=== PATIENT | male | born 1940 | race Caucasian/White ===

== ENCOUNTER 2017-11-20 10:58 | Emergency (ER) | payer MEDICARE ==
[~2017-11-20] VITALS: Ht 170.2 cm; Wt 87.3 kg
[~2017-11-20 10:58] MED LIST: DIOV80TA2 PO; GLUCTAB PO; LORA10TA7 PO; NORV2.5T11; STOO100C PO
[2017-11-20 11:12] VITALS: BP 124/71; PULSE 81; RESP 16; TEMP 97.8; O2SAT 95
[2017-11-20] MEDS ORDERED: METF500T PO (11:38)
[2017-11-20] MEDS ORDERED: AMLO10TA2 PO (11:38)
[2017-11-20] MEDS ORDERED: LISI-515 PO (11:38)
[2017-11-20] MEDS ORDERED: FINA5TAB2 PO (11:38)
[2017-11-20] MEDS ORDERED: LORA-650 PO (11:38)
[2017-11-20] MEDS ORDERED: LEVO25TA4 PO (11:38)
[2017-11-20] MEDS ORDERED: SIMV40TA PO (11:38)
[2017-11-20] MEDS ORDERED: RANI150T PO (11:38)
[2017-11-20] MEDS ORDERED: LISI30TA4 PO (11:38)
[2017-11-20] MEDS ORDERED: AZIT250T3 PO (11:57)
[2017-11-20] MEDS ORDERED: BENZ100 PO (11:58)
--- NOTE | 2017-11-20 11:58 | PD ---
HPI Chief Complaint: Cold / Flu Symptoms Time Seen by Provider: 11:50 Travel History International Travel<30 days: No Contact w/Intl Traveler<30days: No Traveled to known affect area: No History of Present Illness HPI This is a 77-year-old male here for evaluation of productive cough and nasal congestion 5 days. He is reporting cough with yellow phlegm. Severity is moderate. No aggravating or alleviating factors. Denies fever or chills or body aches. Multiple members in the home with similar symptoms. PFSH Past Medical History Hx Anticoagulant Therapy: Yes (asa 81mg) Cardiac Catheterization: Yes Cardiovascular Problems: Yes (htn on meds, stent x 1) High Cholesterol: Yes Diabetes: Yes (type 2) Patient Takes Glucophage: Yes (TODAY) Hypertension: Yes Thyroid Disease: Yes Tetanus Vaccination: < 5 Years Influenza Vaccination: No Past Surgical History Coronary Stent: Yes Thoracic Surgery: Yes (RIGHT LOWER LOBECTOMY) Social History Alcohol Use: Yes (OCCASIONAL) Tobacco Use: Yes (CIGARS 2-3 PER WEEK) Substance Use: No Allergies-Medications (Allergen,Severity, Reaction): Coded Allergies: penicillin G (Unverified Allergy, Severe, HIVES, 11/20/17) Reported Meds & Prescriptions Reported Meds & Active Scripts Active Reported Simvastatin 40 Mg Tab 40 Mg PO HS Amlodipine (Amlodipine Besylate) 10 Mg Tab 10 Mg PO DAILY Finasteride 5 Mg Tab 5 Mg PO DAILY Do not crush. Lisinopril 20 Mg Tab 20 Mg PO DAILY Ranitidine (Ranitidine HCl) 150 Mg Tab 150 Mg PO DAILY Metformin (Metformin HCl) 500 Mg Tab 500 Mg PO DAILY With a meal Levothyroxine (Levothyroxine Sodium) 25 Mcg Tab 25 Mcg PO DAILY Allergy Relief (Loratadine) 10 Mg Tab 10 Mg PO DAILY Lisinopril 30 Mg Tab 30 Mg PO DAILY Review of Systems Except as stated in HPI: all other systems reviewed are Neg Physical Exam Narrative GENERAL: Alert and well-appearing 77-year-old female SKIN: Warm and dry. No rash HEAD: Normocephalic. EYES: No injection or drainage. Ear/nose/throat: No TM erythema. Clear nasal discharge. Mild pharyngeal erythema without tonsillar hypertrophy or exudate. NECK: Supple. No meningismus CARDIOVASCULAR: Regular rate and rhythm RESPIRATORY: Breath sounds equal bilaterally. No accessory muscle use. rhonchorous cough GASTROINTESTINAL: Abdomen soft, non-tender, nondistended. MUSCULOSKELETAL: No cyanosis, or edema. BACK: No CVA tenderness. Data Data Last Documented VS Vital Signs Date Time Temp Pulse Resp B/P (MAP) Pulse Ox O2 Delivery O2 Flow Rate FiO2 11/20/17 11:12 97.8 81 16 124/71 (88) 95 MDM Medical Decision Making Medical Screen Exam Complete: Yes Emergency Medical Condition: Yes Differential Diagnosis Bronchitis, pneumonia, influenza Narrative Course This is a 77-year-old male here with a reported productive cough 5 days. His vital signs are stable. He is well-appearing. He does have a rhonchorous cough. He'll be treated for bronchitis given his age she will be put on azithromycin Diagnosis Primary Impression: Bronchitis Referrals: Primary Care Physician Additional Instructions: Antibiotics as prescribed. Cough medication as needed. Follow-up with primary doctor Scripts Benzonatate (Tessalon Perles) 100 Mg Cap 200 MG PO TID Y for COUGH, #14 CAP 0 Refills Prov: Kaye Liu 11/20/17 Azithromycin (Azithromycin) 250 Mg Tab 250 MG PO DIRECTED for Infection, #6 TAB 0 Refills Take 2 tabs (500 mg) on day 1 then 1 tab daily x 4 days. Prov: Kaye Liu 11/20/17 Disposition: 01 DISCHARGE HOME Condition: Stable Kaye Liu Nov 20, 2017 11:58
== END 2017-11-20 12:20 | disposition home or self-care (01) ==
LOC: PHEFT 10:58
DX: J40 Bronchitis, not specified as acute or chronic (principal); E78.00 Pure hypercholesterolemia, unspecified; E11.9 Type 2 diabetes mellitus without complications; I10 Essential (primary) hypertension; Z79.82 Long term (current) use of aspirin; Z95.5 Presence of coronary angioplasty implant and graft; Z72.0 Tobacco use
CPT/HCPCS: 99283